=== PATIENT | female | born 1935 | race Two or more races ===

== ENCOUNTER 2017-07-09 14:10 | Outpatient (CLI) | payer MEDICARE, OTHER ==
[2017-07-09] MEDS ORDERED: IOPAMIDOL-300 100 ML VIAL ONE (14:28)
[2017-07-09] MEDS ORDERED: IOPAMIDOL-300 100 ML VIAL IVP ONE ×2 (14:44)
--- NOTE | 2017-07-09 19:16 | CT Report ---
EXAM: CT HEAD EXAM DATE: 07/09/2017 02:46 PM. CLINICAL HISTORY: Trigeminal neuralgia. COMPARISON: None. TECHNIQUE: Multiaxial CT images were obtained from the foramen magnum to the vertex. Reformats: Coron al. IV contrast: Without and with 80 mL Isovue 300. In accordance with CT protocol optimization, one or more of the following dose reduction techniques w ere utilized for this exam: automated exposure control, adjustment of mA and/or KV based on patient s ize, or use of iterative reconstructive technique. FINDINGS: Mild generalized cerebral volume loss that is likely age-related. No evidence for acute intracranial abnormality such as hydrocephalus, hemorrhage or infarct. No mass effect, midline shift or abnormal s ubdural fluid collection. Intact calvarium. Clear mastoids. Complete opacification of a posterior near midline sphenoid sinus air cell directly beneath the pitui tary fossa. The paranasal sinuses otherwise appear clear. No intracranial enhancing or space-occupying mass. Contrast opacification of the major dural venous s inuses is present as expected. No evidence for enhancing or space-occupying mass as far as can be det ermined by CT in the posterior fossa including in the region of the prepontine cistern. Note that ashlie luation of the posterior fossa with CT is inherently limited. IMPRESSION: No evidence for acute intracranial abnormality or enhancing mass. Opacified sphenoid sinus air cell posteriorly. [facility] Referring Provider Line: [phone] SITE ID: [id number]
== END 2017-07-09 14:11 | disposition home or self-care (01) ==
LOC: DI 14:10
PROVIDERS: ATTEND Family Medicine
DX: G50.0 Trigeminal neuralgia (principal); I10 Essential (primary) hypertension
CPT/HCPCS: 70470; Q9967

== ENCOUNTER 2017-09-15 08:00 | Outpatient (CLI) | payer MEDICARE ==
[2017-09-15 13:23] LABS: BASOPHILS # (AUTO) 0.1 10^3/uL (0.0-0.1); BASOPHILS % (AUTO) 1.4 %; EOSINOPHILS # (AUTO) 0.4 10^3/uL (0.0-0.7); EOSINOPHILS % (AUTO) 7.1 %; LYMPHOCYTES # (AUTO) 1.3 10^3/uL (1.5-3.5); LYMPHOCYTES % (AUTO) 21.4 %; MEAN CORPUSCULAR HEMOGLOBIN 26.5 pg (27.0-31.0); MEAN CORPUSCULAR HGB CONC 32.2 g/dL (32.0-36.0); MEAN CORPUSCULAR VOLUME 82.3 fL (81.0-99.0); MEAN PLATELET VOLUME 8.3 fL (7.9-10.8); MONOCYTES # (AUTO) 0.6 10^3/uL (0.0-1.0); MONOCYTES % (AUTO) 9.5 %; NEUTROPHILS # (AUTO) 3.6 10^3/uL (1.5-6.6); NEUTROPHILS % (AUTO) 60.6 %; PLT - PLATELET COUNT 345 10^3/uL (130-450); RED CELL DISTRIBUTION WIDTH 23.9 % (12.0-15.0); WHITE BLOOD COUNT 5.9 x10^3/uL (4.8-10.8)
[2017-09-15 13:39] LABS: ALBUMIN 3.5 g/dL (3.2-5.5); ALBUMIN/GLOBULIN RATIO 1.1 (1.0-2.2); ALKALINE PHOSPHATASE 57 IU/L (42-121); ALT ALANINE AMINOTRANSFERASE 16 IU/L (10-60); AST ASPARTATE AMINOTRANSFERASE 23 IU/L (10-42); BILIRUBIN,TOTAL 0.3 mg/dL (0.2-1.0); BUN - BLOOD UREA NITROGEN 14 mg/dL (6-20); CARBON DIOXIDE - CO2 27 mmol/L (21-32); CHLORIDE 102 mmol/L (101-111); CHOL/HDL RATIO 2.4 (<4.4); CHOLESTEROL 184 mg/dL; CREATININE 0.8 mg/dL (0.4-1.0); GFR - MDRD 69 (>89); GLUCOSE 98 mg/dL (70-100); HDL CHOLESTEROL 78 mg/dL; LDL CHOLESTEROL,CALCULATED 85 mg/dL; LDL/HDL RATIO 1.1 (<4.4); SODIUM 138 mmol/L (135-145); TOTAL PROTEIN 6.7 g/dL (6.7-8.2); VLDL CHOLESTEROL 21 mg/dL
[2017-09-15 14:18] LABS: PLATELET ESTIMATE, MANUAL NORMAL (130-450,000) (NORMAL); PLATELET MORPHOLOGY NORMAL APPEARANCE (NORMAL)
== END 2017-09-15 08:01 | disposition home or self-care (01) ==
LOC: LAB.WCP 08:00
PROVIDERS: ATTEND Family Medicine
DX: E55.9 Vitamin D deficiency, unspecified (principal); I10 Essential (primary) hypertension; E03.9 Hypothyroidism, unspecified
CPT/HCPCS: 36415; 80053; 80061; 82306; 83721; 84443; 85025

== ENCOUNTER 2018-05-26 14:41 | Outpatient (CLI) | payer MEDICARE ==
--- NOTE | 2018-05-26 16:20 | Ultrasound Report ---
Reason: PERIPHERAL EDEMA Procedure Date: 05/26/2018 Accession Number: [id number] / [id number] Procedure: US - Ankle Brachial Index CPT Code: FULL RESULT: EXAM: BILATERAL ANKLE/BRACHIAL INDEX EXAM DATE: 05/26/2018 02:51 PM. CLINICAL HISTORY: Peripheral edema. COMPARISON: None. TECHNIQUE: A blood pressure cuff and pulse volume recording Doppler ultrasound was used to evaluate the arterial pressures in the arms and ankle. No images were acquired. FINDINGS: Brachial pressure: Right brachial artery: 155/75 mmHg. Left brachial artery: 161/85 mmHg. Right ankle pressures: Dorsalis pedis artery: Normal velocity with biphasic waveforms. Posterior tibial artery: Normal velocity with biphasic waveforms. Right ankle pressure 173/90 mmHg. Left ankle pressures: Dorsalis pedis artery: Normal velocity with biphasic waveforms. Posterior tibial artery: Normal velocity with biphasic waveforms. Left ankle pressure 177/87 mmHg. IMPRESSION: 1. Right ankle/brachial index: 1.07. 2. Left ankle/brachial index: 1.10. ANKLE/BRACHIAL INDEX REFERENCE STANDARDS 1.0-1.4: Normal 0.90-0.99: Borderline < 0.9: Abnormal [facility]
== END 2018-05-26 14:42 | disposition home or self-care (01) ==
LOC: DI 14:41
PROVIDERS: ATTEND Family Medicine
DX: R60.0 Localized edema (principal)
CPT/HCPCS: 93922

== ENCOUNTER 2018-08-09 10:59 | Outpatient (CLI) | payer MEDICARE ==
--- NOTE | 2018-08-09 11:40 | XRAY Report ---
Reason: KNEE JOINT PAIN,LEFT Procedure Date: 08/09/2018 Accession Number: [id number] / [id number] Procedure: WCP - Knee 2 View LT CPT Code: FULL RESULT: EXAM: LEFT KNEE RADIOGRAPHY EXAM DATE: 08/09/2018 11:08 AM. CLINICAL HISTORY: Knee joint pain, left. COMPARISON: None. TECHNIQUE: 2 views. FINDINGS: Bones: Normal. No fractures or bone lesions. Joints: Mild joint space narrowing of the medial weightbearing compartment with marginal osteophytosis. No joint effusion or subluxation. Soft Tissues: Normal. No soft tissue swelling. IMPRESSION: Mild degenerative changes. [facility]
== END 2018-08-09 11:00 | disposition home or self-care (01) ==
LOC: DI.WCP 10:59
PROVIDERS: ATTEND Family Medicine
DX: M17.12 Unilateral primary osteoarthritis, left knee (principal)

== ENCOUNTER 2019-01-20 11:00 | Outpatient (CLI) | payer MEDICARE | END 2019-01-20 23:59 | disposition home or self-care (01) | LOC: LAB.R 11:00 | PROVIDERS: ATTEND Family Medicine | DX: R39.9 Unspecified symptoms and signs involving the genitourinary system (principal) | CPT/HCPCS: 87086 ==

== ENCOUNTER 2019-02-08 09:26 | Outpatient (CLI) | payer MEDICARE ==
[2019-02-08 12:08] LABS: CREATININE 0.8 mg/dL (0.4-1.0)
[2019-02-08] MEDS ORDERED: GADOBUTROL 7.5 MMOL/7.5 ML VIAL ONE (12:19)
[2019-02-08] MEDS ORDERED: GADOBUTROL 7.5 MMOL/7.5 ML VIAL IVP ONE (13:12)
--- NOTE | 2019-02-09 07:25 | MRI Report ---
Reason: HEARING LOSS Procedure Date: 02/08/2019 Accession Number: [id number] / [id number] Procedure: MRI - IACS W/WO CPT Code: Final Report FULL RESULT: EXAM: MRI BRAIN AND INTERNAL AUDITORY CANAL (IAC),WITHOUT AND WITH CONTRAST EXAM DATE: 02/08/2019 01:19 PM CLINICAL HISTORY: Right-sided hearing loss. COMPARISON: HEAD W/WO 07/09/2017 2:33 PM. TECHNIQUE: Multiplanar, multisequence T1-weighted and fluid-sensitive MRI sequences of the brain and IACs were performed before and after administration of intravenous contrast. Other: None. IV Contrast: 6.5 mL Gadavist. FINDINGS: Brain Volume: Normal for age. Parenchyma/Dura: No acute hemorrhage, mass, or acute infarct.Minimal periventricular and scattered deep white matter FLAIR bright signal is seen in the cerebral hemispheres, not an unexpected finding in a patient of age 84 years. An oval 5 mm cystic focus is seen in the posterolateral right thalamus. No abnormal enhancement. Internal Auditory Canals (IACs): Normal. No cranial nerve lesion or inflammatory process identified. The inner ear structure are symmetric and unremarkable. Ventricles/Cisterns: No hydrocephalus. No abnormal extra-axial fluid collection or hemorrhage. Orbits: Calder appearance to the globes is noted bilaterally. Mild asymmetric dorsal protrusion is seen superomedial to optic nerve insertion. Note is made of bilateral lens removal. Sella Turcica: Note is made of a partially empty sella turcica. The pituitary gland, cavernous sinuses, suprasellar cistern and optic chiasm are unremarkable. Vasculature: Normal signal flow void is seen in the major arterial structures at the skull base. The dural sinuses are patent and enhance normally. Sinuses: Polypoid mucosal thickening is seen posteriorly in the left sphenoid sinus. The mastoid air cells are clear. Bones: No focal pathologic appearing marrow signal changes. Spondylosis is noted in the partially visualized upper cervical spine. 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 This could be further evaluated with MRI of the cervical spine. Other: The visualized nasopharynx and infratemporal fossa are unremarkable. IMPRESSION: 1. No acute intracranial abnormality. No abnormal enhancement. 2. Normal MRI of the IAC and posterior fossa. The inner ear structures are symmetric and unremarkable. 3. Small cystic focus in the posterolateral right thalamus, consistent with old lacunar infarct. 4. Calder appearance to the globes bilaterally. Findings could be secondary to axial myopia or posterior staphyloma. [facility]
== END 2019-02-08 09:27 | disposition home or self-care (01) ==
LOC: DI 09:26
PROVIDERS: ATTEND Otolaryngology
DX: H90.5 Unspecified sensorineural hearing loss (principal)
CPT/HCPCS: 36415; 70543; 82565; A9585

== ENCOUNTER 2020-01-31 08:00 | Outpatient (CLI) | payer MEDICARE ==
[2020-01-31 18:48] LABS: BASOPHILS # (AUTO) 0.1 10^3/uL (0.0-0.1); BASOPHILS % (AUTO) 1.6 %; EOSINOPHILS # (AUTO) 0.4 10^3/uL (0.0-0.7); EOSINOPHILS % (AUTO) 6.1 %; HGB - HEMOGLOBIN 13.1 g/dL (12.0-16.0); LYMPHOCYTES # (AUTO) 1.3 10^3/uL (1.5-3.5); LYMPHOCYTES % (AUTO) 21.9 %; MEAN CORPUSCULAR HEMOGLOBIN 27.5 pg (27.0-31.0); MEAN CORPUSCULAR HGB CONC 30.8 g/dL (32.0-36.0); MEAN CORPUSCULAR VOLUME 89.5 fL (81.0-99.0); MEAN PLATELET VOLUME 10.6 fL (7.9-10.8); MONOCYTES # (AUTO) 0.5 10^3/uL (0.0-1.0); MONOCYTES % (AUTO) 8.9 %; NEUTROPHILS # (AUTO) 3.5 10^3/uL (1.5-6.6); NEUTROPHILS % (AUTO) 61.3 %; PLT - PLATELET COUNT 448 10^3/uL (130-450); RED BLOOD COUNT 4.76 10^6/uL (4.20-5.40); RED CELL DISTRIBUTION WIDTH 14.3 % (12.0-15.0); WHITE BLOOD COUNT 5.7 x10^3/uL (4.8-10.8)
[2020-01-31 20:16] LABS: THYROID STIMULATING HORMONE 2.73 uIU/mL (0.34-5.60)
[2020-01-31 20:17] LABS: FREE T3 2.88 pg/mL (2.5-3.9)
[2020-01-31 20:18] LABS: FREE T4 (FREE THYROXINE) 0.5 ng/dL (0.58-1.64)
== END 2020-01-31 23:59 | disposition home or self-care (01) ==
LOC: LAB.WCP 08:00
PROVIDERS: ATTEND Family Medicine
DX: E03.9 Hypothyroidism, unspecified (principal); E55.9 Vitamin D deficiency, unspecified; M25.562 Pain in left knee; R60.0 Localized edema; G50.0 Trigeminal neuralgia
CPT/HCPCS: 36415; 80053; 80061; 83721; 84439; 84443; 84481; 85025

== ENCOUNTER 2020-02-02 08:00 | Outpatient (CLI) | payer MEDICARE ==
[2020-02-02 19:59] LABS: ALBUMIN 3.9 g/dL (3.2-5.5); ALBUMIN/GLOBULIN RATIO 1.3 (1.0-2.2); ALKALINE PHOSPHATASE 60 IU/L (42-121); ALT ALANINE AMINOTRANSFERASE 15 IU/L (10-60); AST ASPARTATE AMINOTRANSFERASE 20 IU/L (10-42); BILIRUBIN,TOTAL 0.4 mg/dL (0.2-1.0); BUN - BLOOD UREA NITROGEN 16 mg/dL (6-20); CALCIUM 9.3 mg/dL (8.5-10.3); CARBON DIOXIDE - CO2 28 mmol/L (21-32); CHLORIDE 100 mmol/L (101-111); CHOL/HDL RATIO 3.2 (<4.4); CHOLESTEROL 260 mg/dL; CREATININE 0.8 mg/dL (0.4-1.0); GLUCOSE 92 mg/dL (70-100); HDL CHOLESTEROL 81 mg/dL; LDL CHOLESTEROL,CALCULATED 142 mg/dL; LDL/HDL RATIO 1.8 (<4.4); SODIUM 136 mmol/L (135-145); VLDL CHOLESTEROL 37 mg/dL
== END 2020-02-02 23:59 | disposition home or self-care (01) ==
LOC: LAB.WCP 08:00
PROVIDERS: ATTEND Family Medicine
DX: E03.9 Hypothyroidism, unspecified (principal); E55.9 Vitamin D deficiency, unspecified; M25.562 Pain in left knee; R60.0 Localized edema; G50.0 Trigeminal neuralgia
CPT/HCPCS: 36415; 80053; 80061; 83721; 84439; 84443; 84481

== ENCOUNTER 2020-02-27 08:07 | Outpatient (CLI) | payer MEDICARE ==
--- NOTE | 2020-02-28 15:04 | Mammography Report ---
BILATERAL DIGITAL SCREENING MAMMOGRAM 3D/2D: 02/27/2020 CLINICAL: Routine screening. Personal history of left breast cancer. No prior exams were available for comparison. The tissue of both breasts is heterogeneously dense. T his may lower the sensitivity of mammography. There is a focal asymmetry in the right breast at 1 o'clock middle depth. No other significant masses, calcifications, or other findings are seen in either breast. IMPRESSION: INCOMPLETE: NEEDS ADDITIONAL IMAGING EVALUATION The focal asymmetry in the right breast is indeterminate. Additional views with possible ultrasound are recommended. This exam was interpreted at Station ID: [id number]. NOTE: For mammograms, a report in lay terms will be sent to the patient. Approximately 15% of breast malignancies will not be visualized mammographically. In the management of a palpable breast mass, a negative mammogram must not discourage biopsy of a clinically suspicious lesion. Electronically Signed By: Kayla goel/jostin:02/27/2020 10:22:59 ACR BI-RADS Category 0: Incomplete 3340F PARENCHYMAL PATTERN: (D) - The breast(s) demonstrate(s) heterogeneously dense fibroglandular hliary strong. BI-RADS CATEGORY: (0) - 0 Mammo and US [id number] Immediate follow-up LATERALITY: (B)
== END 2020-02-27 08:08 | disposition home or self-care (01) ==
LOC: DI.N 08:07
PROVIDERS: ATTEND Family Medicine
DX: Z12.31 Encounter for screening mammogram for malignant neoplasm of breast (principal); Z08 Encounter for follow-up examination after completed treatment for malignant neoplasm; Z85.3 Personal history of malignant neoplasm of breast; N64.89 Other specified disorders of breast
CPT/HCPCS: 77067

== ENCOUNTER 2020-10-18 09:00 | Outpatient (CLI) | payer MEDICARE | END 2020-10-18 23:59 | disposition home or self-care (01) | LOC: LAB.N 09:00 | PROVIDERS: ATTEND Nurse Practitioner | DX: R30.0 Dysuria (principal) | CPT/HCPCS: 87086 ==

== ENCOUNTER 2020-10-29 10:17 | Outpatient (CLI) | payer MEDICARE ==
[2020-10-29 18:08] LABS: BASOPHILS # (AUTO) 0.1 10^3/uL (0.0-0.1); BASOPHILS % (AUTO) 1.9 %; EOSINOPHILS # (AUTO) 0.4 10^3/uL (0.0-0.7); EOSINOPHILS % (AUTO) 6.7 %; HCT - HEMATOCRIT 37.4 % (37.0-47.0); LYMPHOCYTES # (AUTO) 1.4 10^3/uL (1.5-3.5); LYMPHOCYTES % (AUTO) 21.2 %; MEAN CORPUSCULAR HEMOGLOBIN 25.5 pg (27.0-31.0); MEAN CORPUSCULAR HGB CONC 29.4 g/dL (32.0-36.0); MEAN CORPUSCULAR VOLUME 86.6 fL (81.0-99.0); MEAN PLATELET VOLUME 9.7 fL (7.9-10.8); MONOCYTES # (AUTO) 0.6 10^3/uL (0.0-1.0); MONOCYTES % (AUTO) 9.9 %; NEUTROPHILS # (AUTO) 3.9 10^3/uL (1.5-6.6); PLT - PLATELET COUNT 455 10^3/uL (130-450); RED BLOOD COUNT 4.32 10^6/uL (4.20-5.40); RED CELL DISTRIBUTION WIDTH 15.1 % (12.0-15.0); WHITE BLOOD COUNT 6.5 x10^3/uL (4.8-10.8)
[2020-10-29 18:35] LABS: ALBUMIN 3.5 g/dL (3.2-5.5); ALBUMIN/GLOBULIN RATIO 1.1 (1.0-2.2); ALKALINE PHOSPHATASE 56 IU/L (42-121); ALT ALANINE AMINOTRANSFERASE 15 IU/L (10-60); AST ASPARTATE AMINOTRANSFERASE 22 IU/L (10-42); BILIRUBIN,TOTAL 0.5 mg/dL (0.2-1.0); BUN - BLOOD UREA NITROGEN 16 mg/dL (6-20); CALCIUM 8.9 mg/dL (8.5-10.3); CARBON DIOXIDE - CO2 28 mmol/L (21-32); CHLORIDE 103 mmol/L (101-111); CHOL/HDL RATIO 3.3 (<4.4); CHOLESTEROL 276 mg/dL; CREATININE 0.7 mg/dL (0.4-1.0); GFR - MDRD 79 (>89); GLUCOSE 92 mg/dL (70-100); HDL CHOLESTEROL 84 mg/dL; LDL CHOLESTEROL,CALCULATED 174 mg/dL; LDL/HDL RATIO 2.1 (<4.4); POTASSIUM 4.1 mmol/L (3.5-5.0); SODIUM 139 mmol/L (135-145); TOTAL PROTEIN 6.6 g/dL (6.7-8.2); TRIGLYCERIDES 92 mg/dL; VLDL CHOLESTEROL 18 mg/dL
[2020-10-29 18:40] LABS: THYROID STIMULATING HORMONE 2.04 uIU/mL (0.34-5.60)
== END 2020-10-29 23:59 | disposition home or self-care (01) ==
LOC: LAB.WCP 10:17
PROVIDERS: ATTEND Family Medicine
DX: E78.2 Mixed hyperlipidemia (principal); R60.9 Edema, unspecified; D64.9 Anemia, unspecified; I10 Essential (primary) hypertension; E03.9 Hypothyroidism, unspecified; G50.0 Trigeminal neuralgia
CPT/HCPCS: 36415; 80053; 80061; 83721; 84443; 85025

== ENCOUNTER 2022-03-25 09:58 | Outpatient (CLI) | payer MEDICARE ==
[2022-03-25 12:45] LABS: CALCIUM 8.8 mg/dL (8.5-10.3); CREATININE 0.8 mg/dL (0.4-1.0); POTASSIUM 3.9 mmol/L (3.5-5.0)
[2022-03-25 12:51] LABS: BASOPHILS # (AUTO) 0.1 10^3/uL (0.0-0.1); BASOPHILS % (AUTO) 1.4 %; EOSINOPHILS # (AUTO) 0.4 10^3/uL (0.0-0.7); EOSINOPHILS % (AUTO) 5.6 %; HCT - HEMATOCRIT 36.6 % (37.0-47.0); HGB - HEMOGLOBIN 11.1 g/dL (12.0-16.0); LYMPHOCYTES # (AUTO) 1.3 10^3/uL (1.5-3.5); LYMPHOCYTES % (AUTO) 18.3 %; MEAN CORPUSCULAR HEMOGLOBIN 23.8 pg (27.0-31.0); MEAN CORPUSCULAR HGB CONC 30.3 g/dL (32.0-36.0); MEAN CORPUSCULAR VOLUME 78.5 fL (81.0-99.0); MEAN PLATELET VOLUME 9.4 fL (7.9-10.8); MONOCYTES # (AUTO) 0.5 10^3/uL (0.0-1.0); MONOCYTES % (AUTO) 7.2 %; NEUTROPHILS # (AUTO) 4.7 10^3/uL (1.5-6.6); NEUTROPHILS % (AUTO) 67.1 %; PLT - PLATELET COUNT 500 10^3/uL (130-450); RED BLOOD COUNT 4.66 10^6/uL (4.20-5.40); RED CELL DISTRIBUTION WIDTH 20.3 % (12.0-15.0)
[2022-03-25 13:25] LABS: THYROID STIMULATING HORMONE 2.87 uIU/mL (0.34-5.60)
[2022-03-25 13:31] LABS: FERRITIN 14.3 ng/mL (11.0-306.8)
== END 2022-03-25 09:59 | disposition home or self-care (01) ==
LOC: LAB.N 09:58
PROVIDERS: ATTEND Internal Medicine
DX: I10 Essential (primary) hypertension (principal); D64.9 Anemia, unspecified; E03.9 Hypothyroidism, unspecified; D75.839 Thrombocytosis, unspecified
CPT/HCPCS: 36415; 80048; 82607; 82728; 83540; 84443; 84466; 85025

== ENCOUNTER 2022-04-01 08:55 | Outpatient (CLI) | payer MEDICARE ==
[2022-04-01 12:01] LABS: CREATININE 0.8 mg/dL (0.4-1.0); POTASSIUM 4.6 mmol/L (3.5-5.0)
== END 2022-04-01 08:56 | disposition home or self-care (01) ==
LOC: LAB.N 08:55
PROVIDERS: ATTEND Physician Assistant
DX: E87.1 Hypo-osmolality and hyponatremia (principal)
CPT/HCPCS: 36415; 80048

== ENCOUNTER 2022-06-24 10:00 | Outpatient (CLI) | payer MEDICARE | END 2022-06-24 10:15 | disposition home or self-care (01) | LOC: LAB.N 10:00 | PROVIDERS: ATTEND Family Medicine | DX: R35.0 Frequency of micturition (principal) | CPT/HCPCS: 87086 ==

== ENCOUNTER 2022-08-14 08:53 | Outpatient (CLI) | payer MEDICARE ==
[2022-08-14 12:19] LABS: BASOPHILS # (AUTO) 0.1 10^3/uL (0.0-0.1); BASOPHILS % (AUTO) 1.4 %; EOSINOPHILS # (AUTO) 0.5 10^3/uL (0.0-0.7); EOSINOPHILS % (AUTO) 6.4 %; HCT - HEMATOCRIT 39.5 % (37.0-47.0); HGB - HEMOGLOBIN 12.3 g/dL (12.0-16.0); LYMPHOCYTES # (AUTO) 1.5 10^3/uL (1.5-3.5); LYMPHOCYTES % (AUTO) 21.8 %; MEAN CORPUSCULAR HEMOGLOBIN 25.9 pg (27.0-31.0); MEAN CORPUSCULAR HGB CONC 31.1 g/dL (32.0-36.0); MEAN CORPUSCULAR VOLUME 83.3 fL (81.0-99.0); MEAN PLATELET VOLUME 10.1 fL (7.9-10.8); MONOCYTES # (AUTO) 0.6 10^3/uL (0.0-1.0); NEUTROPHILS # (AUTO) 4.3 10^3/uL (1.5-6.6); PLT - PLATELET COUNT 519 10^3/uL (130-450); RED BLOOD COUNT 4.74 10^6/uL (4.20-5.40); RED CELL DISTRIBUTION WIDTH 17.6 % (12.0-15.0)
[2022-08-14 12:34] LABS: ALBUMIN 3.5 g/dL (3.2-5.5); BILIRUBIN,TOTAL 0.4 mg/dL (0.2-1.0); CALCIUM 9.2 mg/dL (8.5-10.3); CREATININE 0.8 mg/dL (0.4-1.0); MAGNESIUM 2.1 mg/dL (1.7-2.8); POTASSIUM 4.5 mmol/L (3.5-5.0); TOTAL PROTEIN 6.9 g/dL (6.7-8.2)
[2022-08-14 12:46] LABS: THYROID STIMULATING HORMONE 4.49 uIU/mL (0.34-5.60)
== END 2022-08-14 08:54 | disposition home or self-care (01) ==
LOC: LAB.N 08:53
PROVIDERS: ATTEND Physician Assistant
DX: I10 Essential (primary) hypertension (principal); R25.2 Cramp and spasm
CPT/HCPCS: 36415; 80053; 83735; 84443; 85025

== ENCOUNTER 2023-02-23 13:15 | Outpatient (CLI) | payer MEDICARE ==
[2023-02-23 17:41] LABS: BASOPHILS # (AUTO) 0.1 10^3/uL (0.0-0.1); BASOPHILS % (AUTO) 1.4 %; EOSINOPHILS # (AUTO) 0.2 10^3/uL (0.0-0.7); HCT - HEMATOCRIT 42.5 % (37.0-47.0); HGB - HEMOGLOBIN 13.4 g/dL (12.0-16.0); LYMPHOCYTES # (AUTO) 0.9 10^3/uL (1.5-3.5); LYMPHOCYTES % (AUTO) 15.2 %; MEAN CORPUSCULAR HEMOGLOBIN 26.9 pg (27.0-31.0); MEAN CORPUSCULAR HGB CONC 31.5 g/dL (32.0-36.0); MEAN CORPUSCULAR VOLUME 85.3 fL (81.0-99.0); MEAN PLATELET VOLUME 9.8 fL (7.9-10.8); MONOCYTES # (AUTO) 0.7 10^3/uL (0.0-1.0); MONOCYTES % (AUTO) 12.7 %; NEUTROPHILS # (AUTO) 3.9 10^3/uL (1.5-6.6); NEUTROPHILS % (AUTO) 67.5 %; PLT - PLATELET COUNT 463 10^3/uL (130-450); RED BLOOD COUNT 4.98 10^6/uL (4.20-5.40); WHITE BLOOD COUNT 5.7 x10^3/uL (4.8-10.8)
[2023-02-23 18:07] LABS: ALBUMIN 3.9 g/dL (3.2-5.5); ALBUMIN/GLOBULIN RATIO 1.3 (1.0-2.2); BILIRUBIN,TOTAL 0.3 mg/dL (0.2-1.0); CALCIUM 9.6 mg/dL (8.5-10.3); CREATININE 0.7 mg/dL (0.6-1.3); POTASSIUM 4.2 mmol/L (3.5-4.5); TOTAL PROTEIN 6.8 g/dL (6.4-8.9)
== END 2023-02-23 13:30 | disposition home or self-care (01) ==
LOC: LAB.N 13:15
PROVIDERS: ATTEND Physician Assistant Medical
DX: R10.9 Unspecified abdominal pain (principal)
CPT/HCPCS: 36415; 80053; 82150; 83690; 84443; 85025

== ENCOUNTER 2023-08-26 20:19 | Emergency (ER) | payer MEDICARE ==
--- NOTE | 2023-08-26 20:49 | ED Physician Documentation ---
PD HPI OPHTHO - Stated complaint Stated Complaint: FALL/LT EYE LAC - Chief complaint Chief Complaint: Heent - History obtained from History obtained from: Patient - Additional information Additional information: 88-year-old woman presents after mechanical trip and fall with left eye laceration. Patient had bloody material flip out of the eye at the time of the event, states she has pain to the eye and decreased vision. There is moderate bleeding to the eye. no contact lens use PD PAST MEDICAL HISTORY - Past Medical History Past Medical History: Yes Cardiovascular: Hypertension Respiratory: None Neuro: None Endocrine/Autoimmune: None GI: None DEVIL DOG: Breast cancer : None Psych: None Musculoskeletal: None Derm: None - Past Surgical History Past Surgical History: Yes - Present Medications Home Medications: Ambulatory Orders Medication Instructions Recorded Confirmed Gabapentin [Neurontin] 100 mg PO BID PRN 08/26/23 08/26/23 Levothyroxine [Synthroid] 100 mcg PO DAILY 08/26/23 08/26/23 - Allergies Allergies/Adverse Reactions: Allergies Allergy/AdvReac Type Severity Reaction Status Date / Time No Known Drug Allergies Allergy Verified 08/26/23 20:26 - Social History Does the pt smoke?: No Smoking Status: Never smoker Does the pt drink ETOH?: No Does the pt have substance abuse?: No - Immunizations Immunizations are current?: Yes - POLST Patient has POLST: No PD ED PE NORMAL - Vitals Vital signs reviewed: Yes - General General: Alert and oriented X 3, No acute distress, Well developed/nourished - HEENT HEENT: Atraumatic, PERRL, EOMI, Other (L eye with horizontal laceration to cornea about 0.5cm length with blood clot extruding from orbit) Results - Vitals Vitals: Vital Signs - 24 hr 08/26/23 08/26/23 20:26 20:31 Temperature 36.9 C Heart Rate 95 80 Respiratory 18 18 Rate Blood Pressure 188/94 H 192/153 H O2 Saturation 96 98 Oxygen O2 Source Room air - Labs Labs: Laboratory Tests 08/26/23 21:00 WBC 7.2 RBC 5.04 Hgb 14.6 Hct 45.7 MCV 90.7 MCH 29.0 MCHC 31.9 L RDW 14.5 Plt Count 419 MPV 9.7 Neut # (Auto) 3.4 Lymph # (Auto) 2.4 [place] # (Auto) 0.6 Eos # (Auto) 0.7 Baso # (Auto) 0.1 Absolute Nucleated RBC 0.00 Nucleated RBC % 0.0 PD Medical Decision Making - ED course ED course: 88yF not on AC presents s/p mechanical fall with obvious globe rupture and laceration of L orbit. [facility] was contacted for emergent traumatic transfer and admitted attorneys evaluation. 9:04pm - d/w [facility] transfer center RN who connected pr with [facility] ED for ED ED transfer. d/w Dr. Davila, accepting. Departure - Departure Disposition: 02 Transfer Acute Care Hosp Clinical Impression: Ruptured globe Condition: Stable Forms: PCP List
[2023-08-26] MEDS ORDERED: VANCOMYCIN 1 GM VIAL ONE (20:58)
[2023-08-26] MEDS: TETANUS/DIPHTHERIA/PERTUSSIS 0.5 ML SYRINGE IM ONE (21:01)
[2023-08-26] MEDS ORDERED: SODIUM CHLORIDE 0.9% MINIBAG 0 ML IV ONE (21:03)
[2023-08-26 21:04] VITALS: O2SAT 98
[2023-08-26 21:11] LABS: BASOPHILS # (AUTO) 0.1 10^3/uL (0.0-0.1); BASOPHILS % (AUTO) 1.7 %; EOSINOPHILS # (AUTO) 0.7 10^3/uL (0.0-0.7); EOSINOPHILS % (AUTO) 9.4 %; HCT - HEMATOCRIT 45.7 % (37.0-47.0); HGB - HEMOGLOBIN 14.6 g/dL (12.0-16.0); LYMPHOCYTES # (AUTO) 2.4 10^3/uL (1.5-3.5); MEAN CORPUSCULAR HGB CONC 31.9 g/dL (32.0-36.0); MEAN CORPUSCULAR VOLUME 90.7 fL (81.0-99.0); MEAN PLATELET VOLUME 9.7 fL (7.9-10.8); MONOCYTES # (AUTO) 0.6 10^3/uL (0.0-1.0); MONOCYTES % (AUTO) 8.1 %; NEUTROPHILS # (AUTO) 3.4 10^3/uL (1.5-6.6); NEUTROPHILS % (AUTO) 47.4 %; PLT - PLATELET COUNT 419 10^3/uL (130-450); RED BLOOD COUNT 5.04 10^6/uL (4.20-5.40); RED CELL DISTRIBUTION WIDTH 14.5 % (12.0-15.0); WHITE BLOOD COUNT 7.2 x10^3/uL (4.8-10.8)
[2023-08-26] MEDS: VANCOMYCIN INJ 1.25 GM in SODIUM CHLORIDE 0.9% 250 ML IV STA (21:12)
[2023-08-26] MEDS: cefTAZidime 2 GM in SODIUM CHLORIDE 0.9% MINIBAG 100 ML IV STA (21:29)
[2023-08-26 21:45] LABS: ALBUMIN/GLOBULIN RATIO 1.3 (1.0-2.2); BILIRUBIN,TOTAL 0.2 mg/dL (0.2-1.0); CALCIUM 9.3 mg/dL (8.5-10.3); CREATININE 0.9 mg/dL (0.6-1.3); POTASSIUM 3.7 mmol/L (3.5-4.5)
[2023-08-26] MEDS: MORPHINE 2 MG/ML CARPUJECT IVP STA (22:41)
--- NOTE | 2023-08-26 22:41 | CT Report ---
PROCEDURE: Orbits WO INDICATIONS: Left eye globe rupture TECHNIQUE: Noncontrast 2.0 mm axial images acquired through the orbits. For radiation dose reduction, the follo wing was used: automated exposure control, adjustment of mA and/or kV according to patient size. COMPARISON: None. FINDINGS: Image quality: Diagnostic. Orbits: Right globe and orbit is partially imaged. There is abnormal shape/contour of the left globe compatible with rupture. Adjacent soft tissue edema. No metallic foreign bodies. The optic nerves ar e normal in size. No retrobulbar masses or fat abnormalities. The extra-ocular muscles are normal a nd symmetrical in appearance. Intracranial: Visualized portions of the cerebral hemispheres, and brainstem appear unremarkable. Bones and sinuses: There are minimally displaced fractures of the left medial orbital wall/lamina pa pyracea. The remainder the visualized orbital alanis appear intact. Other facial bones and calvarium a ppear intact. Fluid noted within multiple left-sided ethmoid sinuses. Small amount of layering fluid in the posterior sphenoid. IMPRESSION: Minimally displaced, comminuted left medial orbital wall/lamina papyracea fracture with associated ru ptured left globe. Reviewed by: Mayekl Menon MD on 08/26/2023 10:40 PM PDT Approved by: Maykel Menon MD on 08/26/2023 10:40 PM PDT Station ID: [id number]
[2023-08-26] MEDS: MORPHINE 10 MG/ML VIAL IVP STA (22:42)
[2023-08-26 22:57] VITALS: BP 170/85
== END 2023-08-26 22:49 | disposition short-term general hospital (02) ==
LOC: ED 20:19
DX: S05.32XA Ocular laceration without prolapse or loss of intraocular tissue, left eye, initial encounter (principal); S02.832A Fracture of medial orbital wall, left side, initial encounter for closed fracture; W01.0XXA Fall on same level from slipping, tripping and stumbling without subsequent striking against object, initial encounter; I10 Essential (primary) hypertension; Z23 Encounter for immunization
CPT/HCPCS: 36415; 70480; 80053; 85025; 90471; 90715; 96365; 96375; 99285; J3370

== ENCOUNTER 2023-11-17 08:00 | Outpatient (CLI) | payer MEDICARE ==
[2023-11-17 18:03] LABS: BASOPHILS # (AUTO) 0.1 10^3/uL (0.0-0.1); BASOPHILS % (AUTO) 1.1 %; EOSINOPHILS # (AUTO) 0.2 10^3/uL (0.0-0.7); EOSINOPHILS % (AUTO) 1.9 %; HCT - HEMATOCRIT 46.2 % (37.0-47.0); HGB - HEMOGLOBIN 14.5 g/dL (12.0-16.0); MEAN CORPUSCULAR HEMOGLOBIN 28.8 pg (27.0-31.0); MEAN CORPUSCULAR HGB CONC 31.4 g/dL (32.0-36.0); MEAN CORPUSCULAR VOLUME 91.7 fL (81.0-99.0); MEAN PLATELET VOLUME 9.8 fL (7.9-10.8); MONOCYTES # (AUTO) 0.5 10^3/uL (0.0-1.0); MONOCYTES % (AUTO) 5.6 %; NEUTROPHILS # (AUTO) 6.5 10^3/uL (1.5-6.6); NEUTROPHILS % (AUTO) 78.3 %; PLT - PLATELET COUNT 492 10^3/uL (130-450); RED BLOOD COUNT 5.04 10^6/uL (4.20-5.40); RED CELL DISTRIBUTION WIDTH 14.8 % (12.0-15.0); WHITE BLOOD COUNT 8.3 x10^3/uL (4.8-10.8)
[2023-11-17 18:22] LABS: ALBUMIN/GLOBULIN RATIO 1.3 (1.0-2.2); BILIRUBIN,TOTAL 0.3 mg/dL (0.2-1.0); CALCIUM 9.8 mg/dL (8.5-10.3); CREATININE 0.8 mg/dL (0.6-1.3); POTASSIUM 4.1 mmol/L (3.5-4.5); TOTAL PROTEIN 7.1 g/dL (6.4-8.9)
[2023-11-17 18:31] LABS: THYROID STIMULATING HORMONE 6.75 uIU/mL (0.34-5.60)
[2023-11-17 20:36] LABS: ESTIMATED AVERAGE GLUCOSE 131 mg/dL (70-100); HEMOGLOBIN A1c% 6.2 % (4.27-6.07)
== END 2023-11-17 23:59 | disposition home or self-care (01) ==
LOC: LAB.N 08:00
PROVIDERS: ATTEND Family Medicine
DX: E87.1 Hypo-osmolality and hyponatremia (principal); K59.00 Constipation, unspecified; I10 Essential (primary) hypertension; E03.9 Hypothyroidism, unspecified
CPT/HCPCS: 36415; 80053; 83036; 84439; 84443; 85025